=== PATIENT | male | born 1980 | race American Indian/Alaskan Native ===

== ENCOUNTER 2016-09-23 06:07 | Emergency (ER) | payer SELFPAY ==
[2016-09-23] MEDS ORDERED: NACL 0.9% 1000 ML 1,000 ML IV ONE ×3 (06:34→14:47)
[2016-09-23 07:34] LABS: Anion Gap 19 mmol/L; Blood Urea Nitrogen 11 mg/dL (9-20); Calcium 8.1 mg/dL (8.4-10.2); Carbon Dioxide 22 mmol/L (22-30); Chloride 102.7 mmol/L (98-107); Glucose 106 mg/dL (75-100); Potassium 4.8 mmol/L (3.6-5.0); Sodium 139 mmol/L (137-145)
[2016-09-23 07:49] LABS: Basophils % (Auto) 0.2 % (0.0-1.8); Eosinophils % (Auto) 0.3 % (0.0-4.3); Hematocrit 44.4 % (35.5-45.6); Hemoglobin 14.4 gm/dl (11.8-15.2); Mean Corpuscular HGB Conc 33 % (32-34); Mean Corpuscular Hemoglobin 30 pg (28-32); Mean Corpuscular Volume 93 fl (84-94); Platelet Count 215 K/mm3 (140-440); Red Blood Count 4.78 M/mm3 (3.65-5.03); White Blood Count 8.2 K/mm3 (4.5-11.0)
--- NOTE | 2016-09-23 12:41 | Emergency Department Report ---
ED N/V/D HPI - General Chief complaint: Nausea/Vomiting/Diarrhea Stated complaint: DIARREAH/DIZZINESS Time Seen by Provider: 09/23/16 12:15 Source: patient, EMS Mode of arrival: Stretcher Limitations: No Limitations - History of Present Illness Initial comments: 35-year-old male with a past medical history epilepsy and bronchitis presents to the hospital complaining of explosive diarrhea 4 hours. Patient states she' s had about 4 episodes prior to arrival and initially complained of feeling weak upon triage. Patient denies weakness while at rest at this time. Positive nausea reported without vomiting. Patient denies fevers, sick contacts , melena, hematochezia, recent travel, or recent antibiotics use. No previous abdominal surgeries reported. No pain reported - Related Data Previous Rx's Medication Instructions Recorded Last Taken Type Loperamide [Imodium] 2 mg PO Q2HR #20 capsule 09/23/16 Unknown Rx Allergies Allergy/AdvReac Type Severity Reaction Status Date / Time No Known Allergies Allergy Unverified 09/23/16 06:33 ED Review of Systems ROS: Stated complaint: DIARREAH/DIZZINESS Other details as noted in HPI Comment: All other systems reviewed and negative Other: Constitutional: No fevers chills Eyes: No eye pain visual changes ENT: No ear pain or throat pain Neck: Denies pain Respiratory: Denies cough wheezing shortness of breath Cardiovascular: Denies chest pain, palpitations, syncope GI: Denies abdominal pain : Denies dysuria Musculoskeletal: Denies back pain Skin: Denies rash, lesions, erythema Neurologic: Denies headache, numbness, weakness Psychiatric: Denies suicidal ideation, hallucinations ED Past Medical Hx - Past Medical History Additional medical history: BRONCHITIS, EPILEPSY - Surgical History Additional Surgical History: RIGHT INDEX FINGER SURGERY - Social History Smoking Status: Never Smoker Substance Use Type: None - Medications Home Medications: Home Medications Medication Instructions Recorded Confirmed Last Taken Type Loperamide [Imodium] 2 mg PO Q2HR #20 capsule 09/23/16 Unknown Rx ED Physical Exam - General Limitations: No Limitations - Other Other exam information: General: No limitations, patient is alert in no acute distress Head exam: Atraumatic, normocephalic Eyes exam: Normal appearance, pupils equal reactive to light, extraocular movements intact ENT: Moist mucous membrane, normal oropharynx Neck exam: Normal inspection, full range of motion, no meningismus nontender Respiratory exam: Clear to auscultation bilateral, no wheezes, rales, crackles Cardiovascular: Normal rate and rhythm, normal heart sounds Abdomen: Soft, nondistended, and nontender, with normal bowel sounds, no rebound, or guarding Extremity: Full range of motion normal inspection no deformity Back: Normal Inspection, full range of motion, no tenderness Neurologic: Alert, oriented x3, cranial nerves intact, no motor or sensory deficit Psychiatric: normal affect, normal mood Skin: Warm, dry, intact ED Course Vital Signs 09/23/16 09/23/16 09/23/16 06:19 12:51 14:33 Temperature 97.6 F Pulse Rate 66 93 H Pulse Rate [ 77 Lying] Pulse Rate [ 87 Sitting] Respiratory 18 Rate Blood Pressure 86/51 Blood Pressure 86/51 110/69 [Left] Blood Pressure 94/57 [Lying] Blood Pressure 93/65 [Sitting] O2 Sat by Pulse 100 99 Oximetry - Reevaluation(s) Reevaluation #1: 09/23/16 12:40 Normal saline ordered ED Medical Decision Making - Lab Data Result diagrams: 09/23/16 06:56 09/23/16 06:56 Lab Results 09/23/16 09/23/16 09/23/16 Range/Units 06:56 06:56 06:56 WBC 8.2 (4.5-11.0) K/mm3 RBC 4.78 (3.65-5.03) M/mm3 Hgb 14.4 (11.8-15.2) gm/dl Hct 44.4 (35.5-45.6) % MCV 93 (84-94) fl MCH 30 (28-32) pg MCHC 33 (32-34) % RDW 14.0 (13.2-15.2) % Plt Count 215 (140-440) K/mm3 Lymph % (Auto) 14.6 (13.4-35.0) % [place] % (Auto) 8.9 H (0.0-7.3) % Eos % (Auto) 0.3 (0.0-4.3) % Baso % (Auto) 0.2 (0.0-1.8) % Lymph # 1.2 (1.2-5.4) K/mm3 [place] # 0.7 (0.0-0.8) K/mm3 Eos # 0.0 (0.0-0.4) K/mm3 Baso # 0.0 (0.0-0.1) K/mm3 Seg Neutrophils % 76.0 H (40.0-70.0) % Seg Neutrophils # 6.3 (1.8-7.7) K/mm3 Sodium 139 (137-145) mmol/L Potassium 4.8 (3.6-5.0) mmol/L Chloride 102.7 (98-107) mmol/L Carbon Dioxide 22 (22-30) mmol/L Anion Gap 19 mmol/L BUN 11 (9-20) mg/dL Creatinine 1.1 (0.8-1.5) mg/dL Estimated GFR > 60 ml/min BUN/Creatinine Ratio 10.00 % Glucose 106 H (75-100) mg/dL Calcium 8.1 L (8.4-10.2) mg/dL Total Bilirubin 0.3 (0.1-1.2) mg/dL Direct Bilirubin < 0.2 (0-0.2) mg/dL AST 17 (5-40) units/L ALT 18 (7-56) units/L Alkaline Phosphatase 57 (35-129) units/L Total Protein 6.9 (6.3-8.2) g/dL Albumin 3.9 (3.9-5) g/dL Albumin/Globulin Ratio 1.3 % Lipase 38 (13-60) units/L - Medical Decision Making Sx improved prior to d/c. See blank addendum - Differential Diagnosis enteritis, gastroenteritis, colitis, diverticulitis, appendicitis Critical Care Time: No Critical care attestation.: If time is entered above; I have spent that time in minutes in the direct care of this critically ill patient, excluding procedure time. ED Disposition Clinical Impression: Diarrhea Qualifiers: Diarrhea type: unspecified type Qualified Code(s): R19.7 - Diarrhea, unspecified Disposition: DISCHARGED TO HOME OR SELFCARE Is pt being admited?: No Condition: Stable Instructions: Acute Diarrhea (ED) Additional Instructions: Take the medication as prescribed as needed for diarrhea. Return if symptoms worsen as indicated by discharge instructions to follow-up with the doctor or clinic provided Prescriptions: Loperamide [Imodium] 2 mg PO Q2HR #20 capsule Referrals: [facility] [Provider Group] - 3-5 Days TENA MEYER JR, MD [Staff Physician] - 3-5 Days [facility], [Primary Care Provider] - 3-5 Days Time of Disposition: 17:15
[2016-09-23 12:47] LABS: Alanine Aminotransferase 18 units/L (7-56); Albumin 3.9 g/dL (3.9-5); Albumin/Globulin Ratio 1.3 %; Alkaline Phosphatase 57 units/L (35-129); Bilirubin,Direct < 0.2 mg/dL (0-0.2); Bilirubin,Total 0.3 mg/dL (0.1-1.2); Lipase 38 units/L (13-60); Total Protein 6.9 g/dL (6.3-8.2)
[2016-09-23] MEDS ORDERED: NACL 0.9% 1000 ML 1,000 ML ONE (13:14)
[2016-09-23] MEDS ORDERED: IMODIUM PO ONE (14:46)
--- NOTE | 2016-09-23 17:15 | Emergency Department Report ---
Blank Doc - Documentation Documentation: Due to [employer] issue I am unable to update the original chart therefore a separate note created. Patient received 2 L of normal saline total. He reports feeling better. Patient did have significant diarrhea after initial liter but diarrhea stopped after receiving Imodium. Patient continues to deny pain, fever, hematochezia, or melena. He'll be discharged home on Imodium when necessary with a diagnosis of acute diarrhea. Patient stable for disposition and follow-up provided. Lab Results 09/23/16 09/23/16 09/23/16 Range/Units 06:56 06:56 06:56 WBC 8.2 (4.5-11.0) K/mm3 RBC 4.78 (3.65-5.03) M/mm3 Hgb 14.4 (11.8-15.2) gm/dl Hct 44.4 (35.5-45.6) % MCV 93 (84-94) fl MCH 30 (28-32) pg MCHC 33 (32-34) % RDW 14.0 (13.2-15.2) % Plt Count 215 (140-440) K/mm3 Lymph % (Auto) 14.6 (13.4-35.0) % [place] % (Auto) 8.9 H (0.0-7.3) % Eos % (Auto) 0.3 (0.0-4.3) % Baso % (Auto) 0.2 (0.0-1.8) % Lymph # 1.2 (1.2-5.4) K/mm3 [place] # 0.7 (0.0-0.8) K/mm3 Eos # 0.0 (0.0-0.4) K/mm3 Baso # 0.0 (0.0-0.1) K/mm3 Seg Neutrophils % 76.0 H (40.0-70.0) % Seg Neutrophils # 6.3 (1.8-7.7) K/mm3 Sodium 139 (137-145) mmol/L Potassium 4.8 (3.6-5.0) mmol/L Chloride 102.7 (98-107) mmol/L Carbon Dioxide 22 (22-30) mmol/L Anion Gap 19 mmol/L BUN 11 (9-20) mg/dL Creatinine 1.1 (0.8-1.5) mg/dL Estimated GFR > 60 ml/min BUN/Creatinine Ratio 10.00 % Glucose 106 H (75-100) mg/dL Calcium 8.1 L (8.4-10.2) mg/dL Total Bilirubin 0.3 (0.1-1.2) mg/dL Direct Bilirubin < 0.2 (0-0.2) mg/dL AST 17 (5-40) units/L ALT 18 (7-56) units/L Alkaline Phosphatase 57 (35-129) units/L Total Protein 6.9 (6.3-8.2) g/dL Albumin 3.9 (3.9-5) g/dL Albumin/Globulin Ratio 1.3 % Lipase 38 (13-60) units/L
[2016-09-23 19:07] VITALS: BP 110/69
== END 2016-09-23 17:20 | disposition home or self-care (01) ==
LOC: EDSEX → ED 06:07
DX: R19.7 Diarrhea, unspecified (principal)
CPT/HCPCS: 36415; 80048; 80074; 83690; 85025; 96360; 96361; 99284; J7030

== ENCOUNTER 2018-09-12 01:13 | Emergency (ER) | payer SELFPAY ==
--- NOTE | 2018-09-12 02:49 | Emergency Department Report ---
HPI - General Chief Complaint: Pain General Time Seen by Provider: 09/12/18 02:10 - HPI HPI: Room 4 The patient is a 37-year-old male presenting with chief complaint of generalized pain and paresthesia. The patient states approximately 6 days ago he began having "flu symptoms" which include nausea and feeling as though he was going to pass out. The patient states he decided to make colloidal silver to see if it would help her symptoms as he has made it in the past. The patient states this time considered using distilled water he used tap water. The patient states he use tap water in a jar placed to Tam donaldson intubated and connected 1 Gagandeep to the negative terminal 1 Gagandeep to the positive terminal of a 12 "better. Patient states he waited one hour and then drank the solution. The patient states following morning began noticing intermittent tingling and burning in different places of his body. The patient states the symptoms with migraine 2 different locations. Yesterday the patient states he had pain in both his feet while walking and pain in the left knee. The patient states once cold his skin is sensitive to touch. Patient states he is currently asymptomatic while in the emergency department Location: [See above] Duration: [See above] Quality: [See above] Severity: [See above] Modifying factors: [see above] Context: [see above] Mode of transportation: [not driving] ED Past Medical Hx - Past Medical History Previous Medical History?: Yes Additional medical history: BRONCHITIS, EPILEPSY, SLEEP APNEA - Surgical History Past Surgical History?: Yes Additional Surgical History: RIGHT INDEX FINGER SURGERY - Family History Family history: no significant - Social History Smoking Status: Never Smoker Substance Use Type: None (denies illicit drug use) - Medications Home Medications: Home Medications Medication Instructions Recorded Confirmed Last Taken Type Loperamide [Imodium] 2 mg PO Q2HR #20 capsule 09/23/16 Unknown Rx traMADol [Ultram] 50 mg PO Q6HR PRN #14 tablet 09/12/18 Unknown Rx ED Review of Systems ROS: Stated complaint: BACK PAIN Other details as noted in HPI Constitutional: no symptoms reported Eyes: denies: eye pain ENT: denies: throat pain Respiratory: no symptoms reported Cardiovascular: denies: chest pain Endocrine: no symptoms reported Gastrointestinal: denies: abdominal pain Genitourinary: denies: dysuria Musculoskeletal: arthralgia, myalgia Neurological: denies: headache Physical Exam - Physical Exam Vital Signs: Vital Signs 09/12/18 09/12/18 01:23 02:24 Temperature 98.6 F 97.9 F Pulse Rate 82 74 Respiratory 18 17 Rate Blood Pressure 111/70 Blood Pressure 111/75 [Left] O2 Sat by Pulse 98 97 Oximetry Physical Exam: GENERAL: The patient is well-developed well-nourished male lying on stretcher not appear to be in acute distress. [] HEENT: Normocephalic. Atraumatic. Extraocular motions are intact. Patient has moist mucous membranes. NECK: Supple. Trachea midline CHEST/LUNGS: Clear to auscultation. There is no respiratory distress noted. HEART/CARDIOVASCULAR: Regular. There is no tachycardia. There is no gallop rub or murmur. ABDOMEN: Abdomen is soft, nontender. Patient has normal bowel sounds. There is no abdominal distention. SKIN: There is no rash. There is no edema. There is no diaphoresis. NEURO: The patient is awake, alert, and oriented. The patient is cooperative. The patient has no focal neurologic deficits. The patient has normal speech. Cranial nerves II through XII grossly intact, no drift MUSCULOSKELETAL: There is no evidence of acute injury. ED Course Vital Signs 09/12/18 09/12/18 01:23 02:24 Temperature 98.6 F 97.9 F Pulse Rate 82 74 Respiratory 18 17 Rate Blood Pressure 111/70 Blood Pressure 111/75 [Left] O2 Sat by Pulse 98 97 Oximetry - Consultations Consultation #1: 09/12/18 02:49 Poison control called 09/12/18 02:53 Case discussed with poison control-symptoms aren't consistent with silver toxicity. Recommend considering other medical causes for symptoms. Check LFTs, white count and H&H if abnormal call back otherwise do not expect any adverse effects from patient's ingestion. No other specific tests need to be ordered ED Medical Decision Making - Lab Data Result diagrams: 09/12/18 02:04 09/12/18 02:04 Laboratory Tests 09/12/18 09/12/18 09/12/18 02:04 02:04 02:04 WBC 4.5 RBC 5.07 H Hgb 15.8 H Hct 46.9 H MCV 92 MCH 31 MCHC 34 RDW 13.2 Plt Count 266 Lymph % (Auto) 40.4 H [place] % (Auto) 11.0 H Eos % (Auto) 0.4 Baso % (Auto) 0.3 Lymph # 1.8 [place] # 0.5 Eos # 0.0 Baso # 0.0 Seg Neutrophils % 47.9 Seg Neutrophils # 2.1 Sodium 142 Potassium 4.2 Chloride 102.6 Carbon Dioxide 27 Anion Gap 17 BUN 12 Creatinine 1.2 Estimated GFR > 60 BUN/Creatinine Ratio 10 Glucose 91 Calcium 9.4 Magnesium 2.10 Total Bilirubin 0.20 AST 17 ALT 17 Alkaline Phosphatase 57 Total Creatine Kinase 204 H CK-MB (CK-2) 1.8 CK-MB (CK-2) Rel Index 0.8 Troponin T < 0.010 Total Protein 7.8 Albumin 4.5 Albumin/Globulin Ratio 1.4 - EKG Data -: EKG Interpreted by Me EKG shows normal: sinus rhythm Rate: normal - EKG Data When compared to previous EKG there are: previous EKG unavailable Interpretation: other (no ischemic changes seen) - Medical Decision Making Patient counseled on discontinuing making and consuming colloidal silver. Potential irreversible sequelae of silver toxicity discussed. Patient verbalized understanding and states he will no longer consume colloidal silver - Differential Diagnosis electrolyte imbalance, anxiety Critical care attestation.: If time is entered above; I have spent that time in minutes in the direct care of this critically ill patient, excluding procedure time. ED Disposition Clinical Impression: Paresthesia Disposition: DC-01 TO HOME OR SELFCARE Is pt being admited?: No Does the pt Need Aspirin: No Condition: Stable Instructions: Paresthesia (ED) Additional Instructions: Return to the emergency department immediately should you develop worsening symptoms, fever, inability to tolerate food or liquid or any other concerns. Prescriptions: traMADol [Ultram] 50 mg PO Q6HR PRN #14 tablet PRN Reason: Pain Referrals: CRISTIANA AGRAWAL DO [Staff Physician] - 3-5 Days JOANN KERR MD [Staff Physician] - 3-5 Days (Dr Kerr is a neurologist. Please follow up with him for further evaluation) Time of Disposition: 03:46
[2018-09-12 02:52] LABS: Basophils % (Auto) 0.3 % (0.0-1.8); Eosinophils % (Auto) 0.4 % (0.0-4.3); Hematocrit 46.9 % (35.5-45.6); Hemoglobin 15.8 gm/dl (11.8-15.2); Lymphocytes # (Auto) 1.8 K/mm3 (1.2-5.4); Lymphocytes % (Auto) 40.4 % (13.4-35.0); Mean Corpuscular HGB Conc 34 % (32-34); Mean Corpuscular Volume 92 fl (84-94); Monocytes # (Auto) 0.5 K/mm3 (0.0-0.8); Platelet Count 266 K/mm3 (140-440); Red Blood Count 5.07 M/mm3 (3.65-5.03); Red Cell Distribution Width 13.2 % (13.2-15.2)
[2018-09-12 03:13] LABS: Alanine Aminotransferase 17 units/L (7-56); Albumin 4.5 g/dL (3.9-5); BUN/Creatinine Ratio 10; Blood Urea Nitrogen 12 mg/dL (9-20); Calcium 9.4 mg/dL (8.4-10.2); Hemolysis Index 14
[2018-09-12 03:23] LABS: Creatine Kinase MB 1.8 ng/mL (0.0-4.0)
[2018-09-12 04:02] VITALS: BP 105/67
== END 2018-09-12 04:03 | disposition home or self-care (01) ==
LOC: ED 01:13
DX: R20.0 Anesthesia of skin (principal)
CPT/HCPCS: 36415; 80053; 82550; 82553; 83735; 84484; 85025; 93005; 93010